=== PATIENT | female | born 1970 | race Caucasian/White ===

== ENCOUNTER 2019-04-18 14:18 | Emergency (ER) | payer OTHER, MEDICARE ==
[~2019-04-18] VITALS: Ht 157.5 cm; Wt 72.6 kg
[~2019-04-18 14:18] MED LIST: ADULT LOW DOSE81 MG PO; ANTACID GELATI1 EACH PO; ARAVA20 MG PO; ARNUITY ELLIP200 MCG IH; AZULFIDINE500 MG PO; CYMBALTA60 MG PO; DEMADEX10 MG PO; DOXYCYCLINE HY100 MG PO; FUROSEMIDE20 MG PO; HYDROCODON-ACE1 EA10 PO; HYDROXYCHLOROQ200 MG PO; IBUPROFEN600 MG PO; IBUPROFEN800 MG PO; LISINOPRIL2.5 MG PO; LORTAB 7.5-5001 EACH PO; LYRICA75 MG PO; METRONIDAZOLE500 MG PO; OMEPRAZOLE20 MG PO; ORENCIA 25250 MG/10 IV; ORENCIA125 MG/1 M SQ; PERCOCET 5-3251 EACH PO; PLAQUENIL200 MG PO; PREDNISONE20 MG PO; PROVENTIL HFA6.7 GM INH; PULMICORT FLEX90 MCG IH; REMICADE100 MG/10 IV; SIMVASTATIN40 MG PO; SULFAZINE500 MG PO; TYLENOL325 MG PO; VENTOLIN HFA18 GM INH; VITAMIN C1000 M1 PO; VOSPIRE ER4 MG PO
[2019-04-18] MEDS ORDERED: METOPROLOL SUCC25 MG PO (14:27)
== END 2019-04-18 15:35 | disposition home or self-care (01) ==
LOC: ED 14:18
DX: J06.9 Acute upper respiratory infection, unspecified (principal); J45.909 Unspecified asthma, uncomplicated; Z88.5 Allergy status to narcotic agent; Z88.8 Allergy status to other drugs, medicaments and biological substances; Z79.899 Other long term (current) drug therapy
CPT/HCPCS: 71046; 87880; 99283-25

== ENCOUNTER 2019-08-12 14:01 | Emergency (ER) | payer OTHER, MEDICARE ==
[~2019-08-12] VITALS: Ht 157.5 cm; Wt 72.6 kg
[~2019-08-12 14:01] MED LIST changes: +METOPROLOL SUCC25 MG PO
[2019-08-12] MEDS ORDERED: METOPROLOL SUCC25 MG PO (17:36)
[2019-08-12] MEDS ORDERED: SPIRONOLACTONE25 MG PO (17:36)
[2019-08-12] MEDS ORDERED: METOPROLOL SUCC50 MG PO (17:37)
[2019-08-12] MEDS ORDERED: ZOFRAN4 MG PO (19:23)
[2019-08-12] MEDS ORDERED: PROVENTIL HFA6.7 GM INH (19:23)
--- NOTE | 2019-08-13 00:03 | EKG ---
[facility] [address] [facility] [place], [place] [address] Signed Normal sinus rhythm Normal ECG No previous ECGs available Confirmed by PJ RAMÍREZ MD ([id number]) on 08/13/2019 12:02:53 AM Electronically Signed By: PJ RAMÍREZ MD 08/13/19 0003 PATIENT NAME: JEFFRY WEEMS Electrocardiogram DATE OF : 68 PHYSICIAN: PJ RAMÍREZ MD REPORT #: [id number] REPORT IS CONFIDENTIAL AND NOT TO BE RELEASED WITHOUT AUTHORIZATION
== END 2019-08-12 19:52 | disposition home or self-care (01) ==
LOC: ED 14:01
DX: U07.1 COVID-19 (principal); J45.909 Unspecified asthma, uncomplicated; M06.9 Rheumatoid arthritis, unspecified; Z88.5 Allergy status to narcotic agent; Z79.899 Other long term (current) drug therapy
CPT/HCPCS: 71045; 80053; 83735; 84484; 85025; 93005; 93010; 99285-25; C9803; U0002

== ENCOUNTER 2022-02-20 17:21 | Emergency (ER) | payer MEDICARE ==
[~2022-02-20] VITALS: Ht 167.6 cm; Wt 71.7 kg
[~2022-02-20 17:21] MED LIST changes: +METOPROLOL SUCC50 MG PO; +SPIRONOLACTONE25 MG PO; +ZOFRAN4 MG PO
--- OUTSIDE RECORDS SUMMARY | 2022-02-20 17:28 | XMS ---
PreManage Notification: JEFFRY WEEMS Security Match Marker Events No recent Security Events currently on file CRITERIA MET - [facility] - 2 Visits in 30 Days CARE PROVIDERS DANIE KENNEY [facility] Current PHONE: Unknown Светлана has no Care Guidelines for this patient. E.[place] VISIT COUNT (12 MO.) 1 John Canales [address] [place] [address] TOTAL 2 NOTE: Visits indicate total known visits. ED/UCC VISIT TRACKING (12 MO.) 02/20/2022 17:21 [facility] [place] TYPE: Emergency COMPLAINT: - MULTIPLE COMPLAINTS 02/20/2022 02:49 John [facility] OR TYPE: Emergency DIAGNOSES: - Fever and Body Aches - Flu Like Symptoms - Vomiting, unspecified - Pneumonia, unspecified organism INPATIENT VISIT TRACKING (12 MO.) No inpatient visits to display in this time frame [email or web address]
[2022-02-20] MEDS ORDERED: CEFDINIR300 MG PO (18:41)
--- NOTE | 2022-02-21 16:00 | EKG ---
[facility] [address] [facility] [place] [address] Signed Normal sinus rhythm Normal ECG When compared with ECG of 12-AUG-2019 14:25, Questionable change in QRS axis Nonspecific T wave abnormality, worse in Lateral leads Confirmed by RIGOBERTO DICK MD ([id number]) on 02/21/2022 3:59:40 PM Electronically Signed By: RIGOBERTO DICK MD 02/21/22 1600 PATIENT NAME: DANKJEFFRY LEE Electrocardiogram DATE OF : 68 PHYSICIAN: RIGOBERTO DICK MD REPORT #: [id number] REPORT IS CONFIDENTIAL AND NOT TO BE RELEASED WITHOUT AUTHORIZATION
== END 2022-02-20 22:57 | disposition home or self-care (01) ==
LOC: ED 17:21
DX: E86.0 Dehydration (principal); J10.1 Influenza due to other identified influenza virus with other respiratory manifestations; Z20.822 Contact with and (suspected) exposure to COVID-19; M06.9 Rheumatoid arthritis, unspecified; J45.909 Unspecified asthma, uncomplicated; Z88.5 Allergy status to narcotic agent; Z88.8 Allergy status to other drugs, medicaments and biological substances; Z79.899 Other long term (current) drug therapy
CPT/HCPCS: 36415; 51701; 71045; 80053; 81003; 83605; 83880; 84484; 85025; 87502; 93005; 93010; 99285-25; C9803; G0480; J1720; J7121; U0003

== ENCOUNTER 2022-09-17 05:55 | Day surgery (SDC) | payer MEDICARE ==
[2022-09-14 08:37] VITALS: BP 101/58
[~2022-09-17] VITALS: Ht 154.9 cm; Wt 77.3 kg
[~2022-09-17 05:55] MED LIST changes: +CEFDINIR300 MG PO; +CRESTOR20 MG PO; +K-TAB ER20 MEQ PO; +TORSEMIDE10 MG PO
[2022-09-17 06:07] VITALS: BP 115/57
[2022-09-17] MEDS ORDERED: ADULT LOW DOSE81 MG PO (06:10)
--- NOTE | 2022-09-17 08:04 | NUR ---
09/17/22 0804 [address] 0753 PT ARRIVED TO PACU ON LEFT SIDE, PT ASLEEP AND RESP EVEN AND UNLABORED. 0758 PT WAKES TO TACTILE STIMULI AND ROLLS TO HER BACK. PT REORIENTED TO PACU AND DENIES PAIN, PT ENCOURAGED TO PASS GAS NEEDED. PT EASILY FALLS BACK TO SLEEP.
[2022-09-17 08:27] VITALS: BP 97/53
--- NOTE | 2022-09-17 09:21 | OR ---
[facility] [address], [place] [address] Signed DATE OF OPERATION: 09/17/2022 SURGEON: Sabas Mcclain MD PREOPERATIVE DIAGNOSIS: Screening POSTOPERATIVE DIAGNOSIS: Poor bowel prep. PROCEDURE: Sigmoidoscopy (70 cm). ESTIMATED BLOOD LOSS: None. INDICATIONS: Jeffry is a 52-year-old female, asked to see me for her initial screening colonoscopy. She is not sure if her maternal grandfather of colon cancer. She forgot to check with her mom in that regard. Otherwise, no family history of colon polyps. She has no lower GI complaints. In the office, I gave her a pamphlet on colonoscopy. She understands the nature of the test. There is risk including, but not limited to gas bloating, crampy abdominal pain, bleeding, perforation requiring surgery, and missed diagnosis. We also discussed the need for monitored anesthesia care given her previous experiences with anesthesia along with her cardiomyopathy and so forth. She had expressed understanding and wished to proceed. PROCEDURE NOTE: Jeffry was taken into our endoscopy suite and placed in the left lateral decubitus position. She was given monitored anesthesia care with propofol infusion per our nurse transformation coach. A digital rectal exam was performed and she had no external hemorrhoids. She had good sphincter tone. There were no masses. She had quite a bit of liquid brown particulate stool matter on the finger. The adult colonoscope was introduced and advanced under direct visualization of the camera. We immediately encountered large puddles of liquid particulate stool matter that we could not suction out including the rectum. We slowly made our way up through the sigmoid colon into the left colon at about 70 cm. We never could find the splenic flexure. We finally ran into a complete wall of liquid stool that we could not suction through the scope. The scope was clogged several times. We finally had to withdraw the scope. We did not find any specific pathology in the left colon or rectum. Upon retroflexion of the scope, we could not see Electronically Signed By: SABSA MCCLAIN MD 09/17/22 0921 PATIENT NAME: JEFFRY WEEMS OPERATIVE REPORT DATE OF : 68 REPORT #: [id number] PHYSICIAN: SBAAS MCCLAIN MD PCP: GALILEA MAGDALENO MD REPORT IS CONFIDENTIAL AND NOT TO BE RELEASED WITHOUT AUTHORIZATION [address] [address] Signed the anus because of the liquid particulate stool matter. After this, the gas was suctioned out and the colonoscope removed. Jeffry tolerated the procedure quite well. RECOMMENDATIONS: Jeffry will contact the office and we will reschedule her with a double bowel prep. Sabas Mcclain MD ALB/MODL /[id number] cc: MD Sabas Alvarenga MD Copies: GALILEA MAGDALENO DMD, ANDREW L MD ~ Electronically Signed By: SABAS MCCLAIN MD 09/17/22 0921 PATIENT NAME: JEFFRY WEEMS OPERATIVE REPORT DATE OF : 68 REPORT #: [id number] PHYSICIAN: SABAS MCCLAIN MD PCP: GALILEA MAGDALENO MD REPORT IS CONFIDENTIAL AND NOT TO BE RELEASED WITHOUT AUTHORIZATION
--- NOTE | 2022-09-17 10:21 | NUR ---
PT IN GOOD SPIRITS. DENIED NEEDS. CONSENTED TO PRAYER. PRAYED FOR SUCCESSFUL PROCEDURE AND QUICK RECOVERY.
== END 2022-09-17 08:39 | disposition home or self-care (01) ==
LOC: OPS 05:55 → DS 05:55 → OPS 07:30
PROVIDERS: ATTEND Colon & Rectal Surgery
PROC: 0DJD8ZZ Inspection of Lower Intestinal Tract, Via Natural or Artificial Opening Endoscopic (ICD-10-PCS; principal; 2022-09-17 07:30)
DX: Z12.11 Encounter for screening for malignant neoplasm of colon (principal); I42.9 Cardiomyopathy, unspecified; F32.A Depression, unspecified; M79.7 Fibromyalgia; G43.909 Migraine, unspecified, not intractable, without status migrainosus; M06.9 Rheumatoid arthritis, unspecified; G47.33 Obstructive sleep apnea (adult) (pediatric); J45.909 Unspecified asthma, uncomplicated
CPT/HCPCS: J2704; J7121